=== PATIENT | male | born 1960 | race Caucasian/White ===

== ENCOUNTER 2017-08-01 22:25 | Emergency (ER) | payer MEDICAID ==
[~2017-08-01] VITALS: Ht 177.8 cm; Wt 5.9 kg
[2017-08-01 22:36] VITALS: BP_SYST 113
[2017-08-01] MEDS ORDERED: NACL 0.9% 1,000 ML IV ONE (23:09)
[2017-08-01] MEDS ORDERED: MORPHINE 4 MG/ML INJ. SYRINGE IVP ONE (23:15)
[2017-08-01] MEDS ORDERED: ONDANSETRON HCL 4 MG/2 ML VIAL IVP ONE (23:15)
[2017-08-01] MEDS ORDERED: LORazepam 2 MG/ML VIAL (FOR ER USE) IVP ONE (23:30)
[2017-08-02 00:04] LABS: BASOPHILS # (AUTO) 0.4 K/uL (0.0-0.2); EOSINOPHILS # (AUTO) 0.3 K/uL (0.0-0.4); EOSINOPHILS % (AUTO) 2.6 % (0.0-4.0); HEMATOCRIT 43.2 % (36-54); HEMOGLOBIN 14.5 g/dL (14.0-18.0); LYMPHOCYTES % (AUTO) 16.8 % (20.5-51.5); MEAN CORPUSCULAR HEMOGLOBIN 29 pg (27-31); MEAN CORPUSCULAR HGB CONC 34 % (32-36); MEAN CORPUSCULAR VOLUME 87 fL (79.0-98.0); MONOCYTES # (AUTO) 0.8 K/uL (0.0-1.0); MONOCYTES % (AUTO) 6.9 % (1.7-9.3); NEUTROPHILS # (AUTO) 8.2 K/uL (1.8-7.7); NEUTROPHILS % (AUTO) 70.7 % (40.0-70.0); PLATELET COUNT (AUTO) 361 K/uL (130-430); RED BLOOD CELL COUNT(AUTO) 4.95 MIL/uL (4.2-6.2); RED CELL DISTRIBUTION WIDTH 12.4 % (9.0-15.0); WHITE BLOOD COUNT (AUTO) 11.8 K/uL (4.8-10.8)
[2017-08-02 00:18] LABS: CALCIUM 8.9 mg/dL (8.4-11.0); CREATININE 0.88 mg/dL (0.55-1.30); POTASSIUM 3.7 mmol/L (3.5-5.1)
[2017-08-02 00:22] LABS: ALBUMIN 3.6 g/dL (3.4-4.8); TOTAL BILIRUBIN 0.7 mg/dL (0.0-1.0)
[2017-08-02 00:24] LABS: PROTHROMBIN TIME 10.2 SECS (9.5-12.5)
[2017-08-02] MEDS ORDERED: MORPHINE 4 MG/ML INJ. SYRINGE IVP ONE (00:45)
[2017-08-02] MEDS ORDERED: DIPHENHYDRAMINE INJ 50 MG/ML VIAL IVP ONE (00:45)
[2017-08-02] MEDS ORDERED: MORPHINE SULFATE 10 MG/ML VIAL ONE (00:58)
[2017-08-02 02:00] VITALS: BP_SYST 113
== END 2017-08-02 02:10 | disposition home or self-care (01) ==
LOC: SED 22:25
DX: M79.1 Myalgia (principal); M54.9 Dorsalgia, unspecified; G20 Parkinson's disease; I10 Essential (primary) hypertension; Z76.5 Malingerer [conscious simulation]; Z88.6 Allergy status to analgesic agent
CPT/HCPCS: 36415; 71045; 80053; 82150; 82550; 83690; 84484; 85025; 85610; 85730; 93005; 96374; 96375; 96376; 99285; J1200; J2060; J2270 ×2; J2405; J7030

== ENCOUNTER 2017-08-02 22:54 | Emergency (ER) | payer MEDICAID ==
[~2017-08-02] VITALS: Ht 175.3 cm; Wt 104.3 kg
[2017-08-02 22:58] VITALS: BP_SYST 142
[2017-08-03] MEDS ORDERED: DIPHENHYDRAMINE INJ 50 MG/ML VIAL IM ONE
[2017-08-03] MEDS ORDERED: MORPHINE 4 MG/ML INJ. SYRINGE IM ONE ×2 (00:45)
[2017-08-03 01:24] VITALS: BP_SYST 110
== END 2017-08-03 01:24 | disposition home or self-care (01) ==
LOC: SED 22:54
DX: G89.29 Other chronic pain (principal); G20 Parkinson's disease; I10 Essential (primary) hypertension; Z88.6 Allergy status to analgesic agent
CPT/HCPCS: 96372; 99284; J1200; J2270

== ENCOUNTER 2017-08-03 18:38 | Emergency (ER) | payer MEDICAID ==
[~2017-08-03] VITALS: Ht 175.3 cm; Wt 104.3 kg
[2017-08-03 18:40] VITALS: BP_SYST 130
[2017-08-03] MEDS ORDERED: LORazepam 2 MG/ML VIAL (FOR ER USE) IVP ONE (19:00)
[2017-08-03] MEDS: ACETAMINOPHEN 500 MG TABLET PO ONE ×2 (19:33→19:44)
[2017-08-03] MEDS ORDERED: MORPHINE 4 MG/ML INJ. SYRINGE IVP ONE (19:45)
[2017-08-03 19:54] VITALS: BP_SYST 130
== END 2017-08-03 19:54 | disposition home or self-care (01) ==
LOC: SED 18:38
DX: R25.1 Tremor, unspecified (principal); G20 Parkinson's disease; I10 Essential (primary) hypertension; Z88.6 Allergy status to analgesic agent
CPT/HCPCS: 96374; 96375; 99284; J2060; J2270

== ENCOUNTER 2017-08-04 18:38 | Emergency (ER) | payer MEDICAID ==
[~2017-08-04] VITALS: Ht 175.3 cm; Wt 104.3 kg
[2017-08-04 18:45] VITALS: BP_SYST 108
[2017-08-04] MEDS ORDERED: MORPHINE SULFATE 10 MG/ML VIAL IM ONE (19:00)
[2017-08-04] MEDS ORDERED: LORazepam 1 MG TABLET PO ONE (19:00)
[2017-08-04 21:15] VITALS: BP_SYST 124
== END 2017-08-04 21:15 | disposition home or self-care (01) ==
LOC: SED 18:38
DX: G20 Parkinson's disease (principal); I10 Essential (primary) hypertension; Z88.6 Allergy status to analgesic agent
CPT/HCPCS: 96372; 99283; J2270

== ENCOUNTER 2017-08-06 00:34 | Emergency (ER) | payer MEDICAID ==
[~2017-08-06] VITALS: Ht 182.9 cm; Wt 77.1 kg
[2017-08-06 00:40] VITALS: BP_SYST 121
--- NOTE | 2017-08-06 00:40 | NUR ---
Placed in hallway.
--- NOTE | 2017-08-06 00:43 | NUR ---
Patient AAOx4, brought in via wheelchair. Patient states having pain to right leg and generalized body aches with pain scale 9/10. Patient states pain has an aching sensation. Patient states he is able to walk with assistance. Patient denies any other complaints.
[2017-08-06] MEDS ORDERED: DIPHENHYDRAMINE INJ 50 MG/ML VIAL IM ONE (01:00)
[2017-08-06] MEDS ORDERED: KETOROLAC TROMETHAMINE 30 MG VIAL IM ONE (01:00)
--- NOTE | 2017-08-06 01:03 | NUR ---
ER Dr. Reeder at bedside examining patient.
[2017-08-06 01:30] VITALS: BP_SYST 123
--- NOTE | 2017-08-06 01:30 | NUR ---
Patient given written and verbal discharge instructions and verbalizes understanding. ER MD discussed with patient the results and treatment provided. Patient in stable condition. ID arm band removed. Patient educated on pain management and to follow up with PMD. Pain Scale 0/10. Opportunity for questions provided and answered.
== END 2017-08-06 01:30 | disposition home or self-care (01) ==
LOC: SED 00:34
DX: M79.1 Myalgia (principal); G20 Parkinson's disease; I10 Essential (primary) hypertension; Z88.6 Allergy status to analgesic agent
CPT/HCPCS: 96372; 99284; J1200; J1885

== ENCOUNTER 2017-10-23 16:57 | Emergency (ER) | payer MEDICAID ==
[~2017-10-23] VITALS: Ht 177.8 cm; Wt 95.3 kg
[2017-10-23 17:05] VITALS: BP_SYST 166
--- NOTE | 2017-10-23 17:05 | NUR ---
Pt c/o lower back pain progressively worsening s/p fall 1 month ago. Pt states pain exacerbates his Parkinson's Disease. Resting tremmors noted to extremities.
--- NOTE | 2017-10-23 17:05 | NUR ---
Patient wheeled by staff to ER bed 2 to gown for evaluation. Side rails up.
--- NOTE | 2017-10-23 17:20 | NUR ---
Dr. Whitmore at bedside.
--- NOTE | 2017-10-23 17:45 | NUR ---
Pt c/o severe back pain. Dr. Whitmore notified.
[2017-10-23] MEDS ORDERED: MORPHINE 4 MG/ML INJ. SYRINGE IM ONE (18:15)
--- NOTE | 2017-10-23 18:30 | NUR ---
No needs verbalized at this time. Resting tremmors continue to extremities, VSS.
--- NOTE | 2017-10-23 19:00 | NUR ---
Pt requests more pain medication for lower back pain. Pt states that he does not want to be admitted and requests a pain pill and to be discharged with an Rx for pain medications. Dr. Whitmore notified.
[2017-10-23] MEDS ORDERED: HYDROcodone/ACETAMIN 10-325 MG TAB PO ONE (19:15)
--- NOTE | 2017-10-23 20:30 | NUR ---
Patient given written and verbal discharge instructions and verbalizes understanding. ER MD Whitmore discussed with patient the results and treatment provided. Patient in stable condition. ID arm band removed. Rx of [place] given. Patient educated on pain management and to follow up with PMD. Pain Scale 0. Opportunity for questions provided and answered. Medication side effect fact sheet provided.
[2017-10-23 20:33] VITALS: BP_SYST 151
== END 2017-10-23 20:30 | disposition home or self-care (01) ==
LOC: SED 16:57
DX: M54.5 Low back pain (principal); G89.29 Other chronic pain; G20 Parkinson's disease; I10 Essential (primary) hypertension; Z88.6 Allergy status to analgesic agent
CPT/HCPCS: 96372; 99283; J2270

== ENCOUNTER 2017-10-26 15:49 | Emergency (ER) | payer MEDICAID ==
[~2017-10-26] VITALS: Ht 177.8 cm; Wt 95.3 kg
[2017-10-26 15:56] VITALS: BP_SYST 164
[2017-10-26] MEDS ORDERED: KETOROLAC TROMETHAMINE 60 MG/2 ML VIAL IM ONE (16:45)
[2017-10-26] MEDS ORDERED: LORazepam 2 MG/ML VIAL (FOR ER USE) IM ONE (16:45)
[2017-10-26 17:15] VITALS: BP_SYST 164
== END 2017-10-26 17:15 | disposition home or self-care (01) ==
LOC: SED 15:49
DX: G89.29 Other chronic pain (principal); G20 Parkinson's disease; I10 Essential (primary) hypertension; Z88.6 Allergy status to analgesic agent
CPT/HCPCS: 96372; 99284; J1885; J2060

== ENCOUNTER 2017-11-24 12:16 | Emergency (ER) | payer MEDICAID ==
[~2017-11-24] VITALS: Ht 177.8 cm; Wt 101.6 kg
[2017-11-24 12:36] VITALS: BP_SYST 158
--- NOTE | 2017-11-24 14:45 | NUR ---
Patient verbalizes that he is unable to wait any longer. Patient was wheeled home by . LWBS.
== END 2017-11-24 14:45 | disposition left against medical advice (07) ==
LOC: SED 12:16
DX: M54.5 Low back pain (principal); Z53.21 Procedure and treatment not carried out due to patient leaving prior to being seen by health care provider

== ENCOUNTER 2018-01-10 14:08 | Emergency (ER) | payer MEDICAID ==
[~2018-01-10] VITALS: Ht 177.8 cm; Wt 104.3 kg
[2018-01-10 14:15] VITALS: BP_SYST 132
[2018-01-10 14:44] LABS: BASOPHILS # (AUTO) 0.2 K/uL (0.0-0.2); BASOPHILS % (AUTO) 1.9 % (0.0-2.0); EOSINOPHILS # (AUTO) 0.1 K/uL (0.0-0.4); EOSINOPHILS % (AUTO) 1.4 % (0.0-4.0); HEMATOCRIT 45.3 % (36-54); HEMOGLOBIN 14.8 g/dL (14.0-18.0); LYMPHOCYTES # (AUTO) 1.4 K/uL (1.0-5.5); LYMPHOCYTES % (AUTO) 16.3 % (20.5-51.5); MEAN CORPUSCULAR HEMOGLOBIN 30 pg (27-31); MEAN CORPUSCULAR HGB CONC 33 % (32-36); MEAN CORPUSCULAR VOLUME 91 fL (79.0-98.0); MONOCYTES # (AUTO) 0.7 K/uL (0.0-1.0); MONOCYTES % (AUTO) 7.9 % (1.7-9.3); NEUTROPHILS # (AUTO) 6.5 K/uL (1.8-7.7); NEUTROPHILS % (AUTO) 72.5 % (40.0-70.0); PLATELET COUNT (AUTO) 308 K/uL (130-430); RED BLOOD CELL COUNT(AUTO) 4.97 MIL/uL (4.2-6.2); RED CELL DISTRIBUTION WIDTH 13.4 % (9.0-15.0); WHITE BLOOD COUNT (AUTO) 8.9 K/uL (4.8-10.8)
[2018-01-10 14:58] LABS: CALCIUM 9.6 mg/dL (8.4-11.0); CREATININE 0.99 mg/dL (0.55-1.30); POTASSIUM 4.1 mmol/L (3.5-5.1)
[2018-01-10 15:04] LABS: ALBUMIN 3.7 g/dL (3.4-4.8); TOTAL BILIRUBIN 0.5 mg/dL (0.0-1.0)
[2018-01-10] MEDS ORDERED: MORPHINE 4 MG/ML INJ. SYRINGE IVP ONE ×2 (15:45→16:45)
[2018-01-10] MEDS ORDERED: LORazepam 2 MG/ML VIAL (FOR ER USE) IVP ONE (16:45)
[2018-01-10 16:50] VITALS: BP_SYST 146
== END 2018-01-10 16:50 | disposition home or self-care (01) ==
LOC: SED 14:08
DX: G89.29 Other chronic pain (principal); M54.9 Dorsalgia, unspecified; I10 Essential (primary) hypertension; G20 Parkinson's disease; Z88.6 Allergy status to analgesic agent; W18.39XA Other fall on same level, initial encounter; Y93.89 Activity, other specified; Y92.89 Other specified places as the place of occurrence of the external cause; Y99.8 Other external cause status
CPT/HCPCS: 36415; 72100; 80053; 83690; 85025; 96374; 99284; J2270

== ENCOUNTER 2018-01-24 15:25 | Emergency (ER) | payer MEDICAID ==
[~2018-01-24] VITALS: Ht 177.8 cm; Wt 104.3 kg
[2018-01-24] MEDS ORDERED: NACL 0.9% 1,000 ML IV ONE (15:36)
[2018-01-24 15:41] VITALS: BP_SYST 142
[2018-01-24] MEDS ORDERED: ONDANSETRON HCL 4 MG/2 ML VIAL IVP ONE (15:45)
[2018-01-24] MEDS ORDERED: MORPHINE 4 MG/ML INJ. SYRINGE IVP ONE ×2 (15:45→17:30)
[2018-01-24 16:10] LABS: BASOPHILS # (AUTO) 0.2 K/uL (0.0-0.2); EOSINOPHILS # (AUTO) 0.1 K/uL (0.0-0.4); EOSINOPHILS % (AUTO) 1.2 % (0.0-4.0); HEMATOCRIT 44.3 % (36-54); HEMOGLOBIN 14.4 g/dL (14.0-18.0); LYMPHOCYTES # (AUTO) 1.9 K/uL (1.0-5.5); LYMPHOCYTES % (AUTO) 19.1 % (20.5-51.5); MEAN CORPUSCULAR HEMOGLOBIN 30 pg (27-31); MEAN CORPUSCULAR HGB CONC 33 % (32-36); MEAN CORPUSCULAR VOLUME 92 fL (79.0-98.0); MONOCYTES # (AUTO) 0.6 K/uL (0.0-1.0); MONOCYTES % (AUTO) 6.2 % (1.7-9.3); NEUTROPHILS # (AUTO) 7.2 K/uL (1.8-7.7); NEUTROPHILS % (AUTO) 71.5 % (40.0-70.0); PLATELET COUNT (AUTO) 312 K/uL (130-430); RED BLOOD CELL COUNT(AUTO) 4.81 MIL/uL (4.2-6.2); RED CELL DISTRIBUTION WIDTH 13.1 % (9.0-15.0)
[2018-01-24 16:14] LABS: CALCIUM 8.8 mg/dL (8.4-11.0); CREATININE 0.99 mg/dL (0.55-1.30); POTASSIUM 3.8 mmol/L (3.5-5.1)
[2018-01-24 16:17] LABS: PROTHROMBIN TIME 10.1 SECS (9.5-12.5)
[2018-01-24 16:26] LABS: ALBUMIN 3.6 g/dL (3.4-4.8); TOTAL BILIRUBIN 0.7 mg/dL (0.0-1.0)
[2018-01-24] MEDS ORDERED: [UNRECOGNIZED DRUG - CODE] PO (17:04)
[2018-01-24] MEDS ORDERED: DIPHENHYDRAMINE INJ 50 MG/ML VIAL IVP ONE (17:15)
[2018-01-24 17:48] LABS: BILIRUBIN,URINE NEGATIVE (NEGATIVE); BLOOD, URINE TRACE (NEGATIVE); CLARITY/URINE CLEAR (CLEAR); COLOR,URINE YELLOW (YELLOW); GLUCOSE,URINE NEGATIVE (NEGATIVE); KETONES,URINE NEGATIVE (NEGATIVE); LEUKOCYTE ESTERASE ,URINE NEGATIVE (NEGATIVE); NITRITE, URINE NEGATIVE (NEGATIVE); PH,URINE 5.5 (5.0-8.0); PROTEIN URINE NEGATIVE (NEGATIVE); UROBILINOGEN,URINE 0.2 (0.2-1.0)
[2018-01-24 17:55] LABS: BACTERIA,URINE RARE /HPF (None Seen); RBC,URINE 0-3 /HPF (0-3); WBC,URINE 0-3 /HPF (0-3)
[2018-01-24 19:20] VITALS: BP_SYST 154
== END 2018-01-24 19:20 | disposition home or self-care (01) ==
LOC: SED 15:25
DX: G89.29 Other chronic pain (principal); M54.5 Low back pain; F41.9 Anxiety disorder, unspecified; G20 Parkinson's disease; I10 Essential (primary) hypertension; Z88.6 Allergy status to analgesic agent
CPT/HCPCS: 36415; 71045; 80053; 81000; 82150; 82550; 83690; 84484; 85025; 85610; 85730; 93005; 96374; 96375; 96376; 99284; J1200; J2270; J2405; J7030

== ENCOUNTER 2018-02-25 17:20 | Emergency (ER) | payer MEDICAID ==
[~2018-02-25] VITALS: Ht 177.8 cm; Wt 104.3 kg
[2018-02-25 17:20] VITALS: BP_SYST 148
[~2018-02-25 17:20] MED LIST: [UNRECOGNIZED DRUG - CODE] PO
[2018-02-25] MEDS ORDERED: LORazepam 2 MG/ML VIAL (FOR ER USE) IVP ONE (17:45)
[2018-02-25] MEDS ORDERED: DIPHENHYDRAMINE INJ 50 MG/ML VIAL IVP ONE (17:45)
[2018-02-25 18:22] LABS: BASOPHILS # (AUTO) 0.1 K/uL (0.0-0.2); BASOPHILS % (AUTO) 0.5 % (0.0-2.0); EOSINOPHILS # (AUTO) 0.1 K/uL (0.0-0.4); EOSINOPHILS % (AUTO) 1.4 % (0.0-4.0); HEMATOCRIT 46.7 % (36-54); HEMOGLOBIN 15.6 g/dL (14.0-18.0); LYMPHOCYTES # (AUTO) 2.1 K/uL (1.0-5.5); MEAN CORPUSCULAR HEMOGLOBIN 30 pg (27-31); MEAN CORPUSCULAR HGB CONC 34 % (32-36); MEAN CORPUSCULAR VOLUME 91 fL (79.0-98.0); MONOCYTES # (AUTO) 0.6 K/uL (0.0-1.0); NEUTROPHILS # (AUTO) 7.5 K/uL (1.8-7.7); NEUTROPHILS % (AUTO) 72.1 % (40.0-70.0); PLATELET COUNT (AUTO) 338 K/uL (130-430); RED BLOOD CELL COUNT(AUTO) 5.15 MIL/uL (4.2-6.2); RED CELL DISTRIBUTION WIDTH 12.6 % (9.0-15.0); WHITE BLOOD COUNT (AUTO) 10.4 K/uL (4.8-10.8)
[2018-02-25 18:42] LABS: CALCIUM 9.3 mg/dL (8.4-11.0); CREATININE 0.9 mg/dL (0.55-1.30); POTASSIUM 4.1 mmol/L (3.5-5.1)
[2018-02-25 18:47] LABS: ALBUMIN 3.9 g/dL (3.4-4.8); TOTAL BILIRUBIN 0.6 mg/dL (0.0-1.0)
[2018-02-25 18:59] LABS: BARBITURATE, URINE NEGATIVE (NEG <=200); BENZODIAZEPINE, URINE NEGATIVE (NEG <=150); CANNABINOID, URINE NEGATIVE (NEG <=50); COCAINE, URINE NEGATIVE (NEG <=150); METHAMPHETAMINES SCREEN,URINE NEGATIVE (NEG <=500); OPIATE, URINE POSITIVE (NEG <=100); PHENCYCLIDINE SCREEN,URINE NEGATIVE (NEG <=25); UR TRICYCLIC ANTIDEPRESSANTS NEGATIVE (NEG <=300); URINE AMPHETAMINE NEGATIVE (NEG <=500); URINE METHADONE NEGATIVE (NEG <=200); URINE OXYCODONE SCREEN NEGATIVE (NEG <=100); URINE PROPOXYPHENE SCREEN NEGATIVE (NEG <=300)
[2018-02-25 19:30] VITALS: BP_SYST 140
[2018-02-25] MEDS ORDERED: NORMAL SALINE 5 ML DISP.SYRIN IVF SCH (22:00)
== END 2018-02-25 19:42 | disposition home or self-care (01) ==
LOC: SED 17:20
DX: G20 Parkinson's disease (principal); G89.29 Other chronic pain; M54.5 Low back pain; I10 Essential (primary) hypertension; Z88.6 Allergy status to analgesic agent
CPT/HCPCS: 36415; 80053; 80307; 85025; 96374; 96375; 99283; J1200; J2060

== ENCOUNTER 2018-04-26 14:00 | Emergency (ER) | payer MEDICAID ==
[~2018-04-26] VITALS: Ht 177.8 cm; Wt 106.6 kg
[2018-04-26 14:26] VITALS: BP_SYST 166
[2018-04-26] MEDS ORDERED: MORPHINE SULFATE 10 MG/ML VIAL IM ONE (15:30)
[2018-04-26] MEDS ORDERED: ONDANSETRON 4 MG ODT TAB PO ONE (15:30)
[2018-04-26] MEDS ORDERED: HYDROcodone/ACETAMIN 10-325 MG TAB PO ONE (16:15)
[2018-04-26 18:25] VITALS: BP_SYST 148
== END 2018-04-26 18:20 | disposition home or self-care (01) ==
LOC: SED 14:00
DX: S39.012A Strain of muscle, fascia and tendon of lower back, initial encounter (principal); G20 Parkinson's disease; I10 Essential (primary) hypertension; F41.9 Anxiety disorder, unspecified; Z88.6 Allergy status to analgesic agent; W19.XXXA Unspecified fall, initial encounter; Y93.89 Activity, other specified; Y92.89 Other specified places as the place of occurrence of the external cause; Y99.8 Other external cause status
CPT/HCPCS: 72192; 96372; 99284; J2270; Q0162

== ENCOUNTER 2018-05-24 16:06 | Emergency (ER) | payer MEDICAID ==
[~2018-05-24] VITALS: Ht 177.8 cm; Wt 106.6 kg
[2018-05-24 16:37] VITALS: BP_SYST 132
[2018-05-24] MEDS ORDERED: fentaNYL CITRATE/PF 100 MCG/2 ML AMP IM ONE (17:15)
[2018-05-24 18:20] VITALS: BP_SYST 140
== END 2018-05-24 18:19 | disposition home or self-care (01) ==
LOC: SED 16:06
DX: S16.1XXA Strain of muscle, fascia and tendon at neck level, initial encounter (principal); S30.0XXA Contusion of lower back and pelvis, initial encounter; I10 Essential (primary) hypertension; F41.9 Anxiety disorder, unspecified; Z88.6 Allergy status to analgesic agent; W10.9XXA Fall (on) (from) unspecified stairs and steps, initial encounter; Y93.89 Activity, other specified; Y92.89 Other specified places as the place of occurrence of the external cause; Y99.8 Other external cause status
CPT/HCPCS: 72040; 72100; 96372; 99283; J3010

== ENCOUNTER 2018-05-25 15:56 | Emergency (ER) | payer MEDICAID ==
[~2018-05-25] VITALS: Ht 177.8 cm; Wt 106.6 kg
[2018-05-25 15:59] VITALS: BP_SYST 169
[2018-05-25 16:48] LABS: BASOPHILS % (AUTO) 0.4 % (0.0-2.0); EOSINOPHILS % (AUTO) 0.4 % (0.0-4.0); HEMATOCRIT 47.7 % (36-54); HEMOGLOBIN 15.9 g/dL (14.0-18.0); LYMPHOCYTES # (AUTO) 1.3 K/uL (1.0-5.5); LYMPHOCYTES % (AUTO) 11.9 % (20.5-51.5); MEAN CORPUSCULAR HEMOGLOBIN 30 pg (27-31); MEAN CORPUSCULAR HGB CONC 33 % (32-36); MEAN CORPUSCULAR VOLUME 91 fL (79.0-98.0); MONOCYTES # (AUTO) 0.5 K/uL (0.0-1.0); MONOCYTES % (AUTO) 4.8 % (1.7-9.3); NEUTROPHILS # (AUTO) 9.2 K/uL (1.8-7.7); NEUTROPHILS % (AUTO) 82.5 % (40.0-70.0); PLATELET COUNT (AUTO) 310 K/uL (130-430); RED BLOOD CELL COUNT(AUTO) 5.24 MIL/uL (4.2-6.2); RED CELL DISTRIBUTION WIDTH 13.9 % (9.0-15.0); WHITE BLOOD COUNT (AUTO) 11.1 K/uL (4.8-10.8)
[2018-05-25 17:05] LABS: CALCIUM 9.6 mg/dL (8.4-11.0); CREATININE 0.97 mg/dL (0.55-1.30); POTASSIUM 3.8 mmol/L (3.5-5.1)
[2018-05-25 17:10] LABS: TOTAL BILIRUBIN 1.2 mg/dL (0.0-1.0)
[2018-05-25] MEDS ORDERED: KETOROLAC TROMETHAMINE 60 MG/2 ML VIAL IM ONE (17:15)
[2018-05-25] MEDS ORDERED: HYDROcodone/ACETAMIN 10-325 MG TAB PO ONE (17:15)
[2018-05-25 17:19] LABS: PROTHROMBIN TIME 10.1 SECS (9.5-12.5)
[2018-05-25 19:22] VITALS: BP_SYST 140
== END 2018-05-25 19:19 | disposition home or self-care (01) ==
LOC: SED 15:56
DX: G89.29 Other chronic pain (principal); M54.5 Low back pain; R07.89 Other chest pain; I10 Essential (primary) hypertension; F41.9 Anxiety disorder, unspecified; G20 Parkinson's disease; Z88.6 Allergy status to analgesic agent
CPT/HCPCS: 36415; 71045; 80053; 83880; 84484; 85025; 85610; 85730; 93005; 96372; 99284; J1885

== ENCOUNTER 2018-06-21 12:05 | Emergency (ER) | payer MEDICAID ==
[~2018-06-21] VITALS: Ht 177.8 cm; Wt 108.9 kg
[2018-06-21 12:12] VITALS: BP_SYST 107
[2018-06-21] MEDS ORDERED: fentaNYL CITRATE/PF 100 MCG/2 ML AMP IM ONE (12:45)
[2018-06-21] MEDS ORDERED: PROCHLORPERAZINE EDISYLATE 10 MG/2 ML VIAL IM ONE (12:45)
[2018-06-21 14:49] VITALS: BP_SYST 124
== END 2018-06-21 14:32 | disposition home or self-care (01) ==
LOC: SED 12:05
DX: M54.5 Low back pain (principal); G89.29 Other chronic pain; I10 Essential (primary) hypertension; G20 Parkinson's disease; F41.9 Anxiety disorder, unspecified; Z88.6 Allergy status to analgesic agent
CPT/HCPCS: 96374; 96375; 99283; J0780; J3010

== ENCOUNTER → 2018-09-09 | Emergency (ER) | payer MEDICAID ==
[~2018-09-09] VITALS: Ht 177.8 cm; Wt 104.8 kg
[~2018-09-09] MED LIST changes: +KETOROLAC TROMETHAMINE 60 MG/2 ML VIAL IM ONE; +LORazepam 2 MG/ML VIAL (FOR ER USE) IM ONE
[2018-09-09 14:10] VITALS: BP_SYST 155
[2018-09-09 16:45] VITALS: BP_SYST 155
== END | disposition still patient (30) ==
LOC: SED 14:09
DX: Z76.0 Encounter for issue of repeat prescription (principal); I10 Essential (primary) hypertension; F41.9 Anxiety disorder, unspecified; G20 Parkinson's disease; Z88.6 Allergy status to analgesic agent
CPT/HCPCS: 96372; 99283; J1885; J2060

== ENCOUNTER 2018-12-01 12:41 | Emergency (ER) | payer MEDICAID ==
[~2018-12-01] VITALS: Ht 177.8 cm; Wt 110.7 kg
[~2018-12-01 12:41] MED LIST changes: -KETOROLAC TROMETHAMINE 60 MG/2 ML VIAL IM ONE; -LORazepam 2 MG/ML VIAL (FOR ER USE) IM ONE
[2018-12-01 12:47] VITALS: BP_SYST 154
[2018-12-01] MEDS ORDERED: MORPHINE 2 MG/ML INJ. SYRINGE IM ONE (13:00)
[2018-12-01] MEDS ORDERED: LORazepam 2 MG/ML VIAL IM ONE (13:00)
[2018-12-01 15:10] VITALS: BP_SYST 149
== END 2018-12-01 15:10 | disposition home or self-care (01) ==
LOC: SED 12:41
DX: M54.41 Lumbago with sciatica, right side (principal); I10 Essential (primary) hypertension; Z88.6 Allergy status to analgesic agent; W01.0XXA Fall on same level from slipping, tripping and stumbling without subsequent striking against object, initial encounter; Y93.89 Activity, other specified; Y92.89 Other specified places as the place of occurrence of the external cause; Y99.8 Other external cause status
CPT/HCPCS: 72131; 96372; 99284; J2060; J2270

== ENCOUNTER 2019-07-01 07:31 | Emergency (ER) | payer MEDICAID ==
[~2019-07-01] VITALS: Ht 177.8 cm; Wt 113.4 kg
--- NOTE | 2019-07-01 07:32 | NUR ---
Patient to ER bed 5 to gown for evaluation. Side rails up.
--- NOTE | 2019-07-01 07:35 | NUR ---
ER Dr. Eisenberg at bedside examining patient.
--- NOTE | 2019-07-01 07:37 | NUR ---
Pt BIBA c/o increase tremors and sleep depreviation. Pt reports running out of his medications. Pt currently takes ativan 2mg x twice a day. Pt reports pain 8/10 for chronic back pain.
--- NOTE | 2019-07-01 07:40 | NUR ---
PATIENT PLACED ON WARM IN WORKER, SAO2, ABP
[2019-07-01 07:43] VITALS: BP_SYST 161
[2019-07-01] MEDS ORDERED: LISI40TA4 PO (07:43)
[2019-07-01] MEDS ORDERED: LORA2TAB95 PO (07:43)
[2019-07-01] MEDS ORDERED: LORazepam 1 MG TABLET PO ONE (08:15)
--- NOTE | 2019-07-01 08:30 | NUR ---
Pt reports a decrease in tremors 18 minutes after ativan 2mg PO given. Will continue to monitor.
[2019-07-01 08:35] LABS: BASOPHILS # (AUTO) 0.1 K/uL (0.0-0.2); BASOPHILS % (AUTO) 0.4 % (0.0-2.0); EOSINOPHILS % (AUTO) 0.2 % (0.0-4.0); HEMATOCRIT 42.7 % (36-54); HEMOGLOBIN 14.3 g/dL (14.0-18.0); LYMPHOCYTES # (AUTO) 1.7 K/uL (1.0-5.5); LYMPHOCYTES % (AUTO) 12.1 % (20.5-51.5); MEAN CORPUSCULAR HEMOGLOBIN 30 pg (27-31); MEAN CORPUSCULAR HGB CONC 34 % (32-36); MEAN CORPUSCULAR VOLUME 88 fL (79.0-98.0); MONOCYTES # (AUTO) 0.9 K/uL (0.0-1.0); MONOCYTES % (AUTO) 6.2 % (1.7-9.3); NEUTROPHILS # (AUTO) 11.4 K/uL (1.8-7.7); NEUTROPHILS % (AUTO) 81.1 % (40.0-70.0); PLATELET COUNT (AUTO) 361 K/uL (130-430); RED BLOOD CELL COUNT(AUTO) 4.83 MIL/uL (4.2-6.2); RED CELL DISTRIBUTION WIDTH 13.6 % (9.0-15.0)
[2019-07-01 08:42] LABS: CREATININE 0.99 mg/dL (0.55-1.30); POTASSIUM 4.1 mmol/L (3.5-5.1)
[2019-07-01 08:48] LABS: ALBUMIN 3.8 g/dL (3.4-4.8); TOTAL BILIRUBIN 0.7 mg/dL (0.0-1.0)
--- NOTE | 2019-07-01 09:06 | NUR ---
REASSESSMENT; PATIENT STATES HIS SYMPTOMS ARE MARKEDLY IMPROVED; DISPOSITION PENDING; PATIENT IS CURRENTLY PAIN FREE
[2019-07-01 09:47] VITALS: BP_SYST 137
--- NOTE | 2019-07-01 09:47 | NUR ---
Patient given written and verbal discharge instructions and verbalizes understanding. ER MD discussed with patient the results and treatment provided. Patient in stable condition. ID arm band removed. Rx of ATIVAN given. Patient educated on pain management and to follow up with PMD. Pain Scale 0/10. Opportunity for questions provided and answered. Medication side effect fact sheet provided.
== END 2019-07-01 09:47 | disposition home or self-care (01) ==
LOC: SED 07:31
DX: G25.2 Other specified forms of tremor (principal); F41.9 Anxiety disorder, unspecified; G20 Parkinson's disease; I10 Essential (primary) hypertension; Z79.899 Other long term (current) drug therapy; Z88.6 Allergy status to analgesic agent
CPT/HCPCS: 36415; 80053; 85025; 99283

== ENCOUNTER 2019-09-09 05:46 | Emergency (ER) | payer MEDICAID ==
[~2019-09-09] VITALS: Ht 177.8 cm; Wt 113.4 kg
[2019-09-09 05:46] VITALS: BP_SYST 162
[~2019-09-09 05:46] MED LIST changes: +LISI40TA4 PO; +LORA2TAB95 PO
[2019-09-09] MEDS ORDERED: NACL 0.9% 1,000 ML IV ONE (06:19)
[2019-09-09] MEDS ORDERED: LORazepam 2 MG/ML VIAL IVP ONE ×2 (06:30→08:15)
[2019-09-09] MEDS ORDERED: MORPHINE 2 MG/ML INJ. SYRINGE IVP ONE (06:30)
[2019-09-09 06:55] LABS: BASOPHILS # (AUTO) 0.1 K/uL (0.0-0.2); BASOPHILS % (AUTO) 0.5 % (0.0-2.0); EOSINOPHILS % (AUTO) 0.2 % (0.0-4.0); HEMATOCRIT 43.1 % (36-54); HEMOGLOBIN 14.3 g/dL (14.0-18.0); LYMPHOCYTES # (AUTO) 1.5 K/uL (1.0-5.5); LYMPHOCYTES % (AUTO) 10.1 % (20.5-51.5); MEAN CORPUSCULAR HEMOGLOBIN 29 pg (27-31); MEAN CORPUSCULAR HGB CONC 33 % (32-36); MEAN CORPUSCULAR VOLUME 88 fL (79.0-98.0); MONOCYTES # (AUTO) 1.1 K/uL (0.0-1.0); MONOCYTES % (AUTO) 7.7 % (1.7-9.3); NEUTROPHILS # (AUTO) 11.7 K/uL (1.8-7.7); NEUTROPHILS % (AUTO) 81.5 % (40.0-70.0); PLATELET COUNT (AUTO) 370 K/uL (130-430); RED BLOOD CELL COUNT(AUTO) 4.92 MIL/uL (4.2-6.2); RED CELL DISTRIBUTION WIDTH 13.2 % (9.0-15.0); WHITE BLOOD COUNT (AUTO) 14.4 K/uL (4.8-10.8)
[2019-09-09 06:56] LABS: CALCIUM 9.5 mg/dL (8.4-11.0); CREATININE 1.01 mg/dL (0.55-1.30); POTASSIUM 4.2 mmol/L (3.5-5.1)
[2019-09-09 07:01] LABS: ALBUMIN 3.9 g/dL (3.4-4.8)
[2019-09-09 07:03] LABS: PROTHROMBIN TIME 10.5 SECS (9.5-12.5)
[2019-09-09] MEDS ORDERED: ONDANSETRON HCL 4 MG/2 ML VIAL IVP ONE (07:30)
[2019-09-09] MEDS ORDERED: MORPHINE 4 MG/ML INJ. SYRINGE IVP ONE ×2 (07:30→08:15)
[2019-09-09 08:38] VITALS: BP_SYST 167
== END 2019-09-09 08:52 | disposition home or self-care (01) ==
LOC: SED 05:46
DX: G25.2 Other specified forms of tremor (principal); G20 Parkinson's disease; F41.9 Anxiety disorder, unspecified; I10 Essential (primary) hypertension; Z79.899 Other long term (current) drug therapy; Z88.6 Allergy status to analgesic agent
CPT/HCPCS: 36415; 71045; 80053; 83605; 85025; 85610; 85730; 87040; 93005; 96374; 96375; 96376; 99285; J2060; J2270 ×2; J2405; J7030

== ENCOUNTER 2020-08-10 10:24 | Emergency (ER) | payer MEDICAID ==
[~2020-08-10] VITALS: Ht 177.8 cm; Wt 117.9 kg
[~2020-08-10 10:24] MED LIST changes: +LISI40TA13 PO; -LISI40TA4 PO
--- NOTE | 2020-08-10 10:31 | NUR ---
ER DR. JIMENES AT THE BEDSIDE EXAMINING PT
[2020-08-10 10:32] VITALS: BP_SYST 149
--- NOTE | 2020-08-10 10:32 | NUR ---
Patient to ER bed 6 to gown for evaluation. Side rails up
--- NOTE | 2020-08-10 10:33 | NUR ---
PT CAME TO ER STATING THAT HE NEEDS RX REFILL FOR ATIVAN, CARBIDOPA AND TRAMADOL. PT REPORTS HX OF PARKINSON'S, HTN AND CHRONIC BACK PAIN. PT IS AAOX4, V/S STABLE
[2020-08-10 10:47] VITALS: BP_SYST 149
--- NOTE | 2020-08-10 10:48 | NUR ---
Patient given written and verbal discharge instructions and verbalizes understanding. ER MD discussed with patient the results and treatment provided. Patient in stable condition. ID arm band removed. Rx of ATIVAN, TRAMADOL AND CARBIDOPA given. Patient educated on pain management and to follow up with PMD. Pain Scale 7/10 CHRONIC BACK PAIN. Opportunity for questions provided and answered. Medication side effect fact sheet provided.
== END 2020-08-10 10:48 | disposition home or self-care (01) ==
LOC: SED 10:24
DX: F41.9 Anxiety disorder, unspecified (principal); I10 Essential (primary) hypertension; Z88.6 Allergy status to analgesic agent; Z79.899 Other long term (current) drug therapy; Z76.0 Encounter for issue of repeat prescription
CPT/HCPCS: 99281

== ENCOUNTER 2021-01-02 03:08 | Emergency (ER) | payer MEDICAID ==
[~2021-01-02] VITALS: Ht 177.8 cm; Wt 106.6 kg
[2021-01-02 03:28] VITALS: BP_SYST 131
--- NOTE | 2021-01-02 03:45 | NUR ---
Patient wheeled to bed 4 for evaluation
--- NOTE | 2021-01-02 04:08 | NUR ---
ER at bedside examining patient.
--- NOTE | 2021-01-02 04:38 | NUR ---
Called [phone] for a ride (Ivette-patient's sister)
[2021-01-02] MEDS: CARBIDOPA/LEVODOPA 25/250 MG TABLET PO ONE (04:40)
[2021-01-02 04:51] VITALS: BP_SYST 131
--- NOTE | 2021-01-02 04:51 | NUR ---
Patient given written and verbal discharge instructions and verbalizes understanding. ER MD discussed with patient the results and treatment provided. Patient in stable condition. ID arm band removed. Rx of Ativan, Tramadol and Carbidopa given. Patient educated on pain management and to follow up with PMD. Pain Scale 1/10. Opportunity for questions provided and answered. Medication side effect fact sheet provided.
== END 2021-01-02 04:51 | disposition home or self-care (01) ==
LOC: SED 03:08
DX: G20 Parkinson's disease (principal); G89.29 Other chronic pain; M54.9 Dorsalgia, unspecified; F41.9 Anxiety disorder, unspecified; Z76.0 Encounter for issue of repeat prescription; I10 Essential (primary) hypertension; Z79.899 Other long term (current) drug therapy
CPT/HCPCS: 99281; 99283

== ENCOUNTER 2021-04-10 09:09 | Emergency (ER) | payer MEDICAID ==
[~2021-04-10] VITALS: Ht 177.8 cm; Wt 113.4 kg
[2021-04-10 09:10] VITALS: BP_SYST 107
[2021-04-10] MEDS ORDERED: LORazepam 1 MG TABLET PO ONE (09:30)
[2021-04-10 09:37] VITALS: BP_SYST 110
== END 2021-04-10 09:37 | disposition home or self-care (01) ==
LOC: SED 09:09
DX: G20 Parkinson's disease (principal); I10 Essential (primary) hypertension; Z76.0 Encounter for issue of repeat prescription; Z88.6 Allergy status to analgesic agent; Z79.899 Other long term (current) drug therapy
CPT/HCPCS: 99283

== ENCOUNTER 2021-06-15 12:03 | Emergency (ER) | payer MEDICAID ==
[~2021-06-15] VITALS: Ht 177.8 cm; Wt 113.4 kg
[2021-06-15 12:11] VITALS: BP_SYST 148
--- NOTE | 2021-06-15 12:14 | NUR ---
Pt to waiting room waiting for bed to become available. Dr. Perez notified.
--- NOTE | 2021-06-15 12:15 | NUR ---
Pt is A&Ox4. Skin intact. Coming from home ambulatory with assistive device (wheelchair). Pt c/o needing medication refill. No pain. No chest pain and no sob. VSS.
--- NOTE | 2021-06-15 13:00 | NUR ---
Notified Dr. Perez to see pt in waiting room because he has not seen him yet. Dr. Perez stated he will see pt when he can. Notified pt. Pt is A&Ox4. Has no c/o.
[2021-06-15] MEDS ORDERED: CARB1TAB15 PO (13:39)
[2021-06-15] MEDS ORDERED: LISI40TA13 PO (13:39)
--- NOTE | 2021-06-15 14:01 | NUR ---
ER at bedside examining patient.
--- NOTE | 2021-06-15 14:03 | NUR ---
Pt moved to [facility] bed 1. A&Ox4. No c/o.
[2021-06-15] MEDS ORDERED: traMADol HCL HCL 50 MG TABLET (ULTRAM) PO ONE (14:15)
[2021-06-15] MEDS ORDERED: LORazepam 1 MG TABLET PO ONE (14:15)
--- NOTE | 2021-06-15 14:42 | NUR ---
Patient given written and verbal discharge instructions and verbalizes understanding. ER MD discussed with patient the results and treatment provided. Patient in stable condition. ID arm band removed. Rx of Lisinopril and Carvidopa levidopa given. Patient educated on pain management and to follow up with PMD. Pain Scale . Opportunity for questions provided and answered. Medication side effect fact sheet provided.
--- NOTE | 2021-06-15 14:42 | NUR ---
Pt advised not to drive and to be picked up due to medication he was received by Dr. Whitmore. Sister Polly notified and stated she will be on her way to pick pt up.
[2021-06-15 14:43] VITALS: BP_SYST 148
== END 2021-06-15 14:42 | disposition home or self-care (01) ==
LOC: SED 12:03
DX: G20 Parkinson's disease (principal); I10 Essential (primary) hypertension; Z88.6 Allergy status to analgesic agent
CPT/HCPCS: 99283

== ENCOUNTER 2021-07-24 11:18 | Emergency (ER) | payer MEDICAID ==
[~2021-07-24] VITALS: Ht 177.8 cm; Wt 115.7 kg
[~2021-07-24 11:18] MED LIST changes: +CARB1TAB15 PO
[2021-07-24 11:23] VITALS: BP_SYST 158
--- NOTE | 2021-07-24 11:23 | NUR ---
Patient to ER bed 8 to gown for evaluation. Side rails up. Report given to Nikolay.
--- NOTE | 2021-07-24 11:44 | NUR ---
ER at bedside examining patient.
--- NOTE | 2021-07-24 11:55 | NUR ---
PT TAKEN TO RADIOLOGY VIA WHEELCHAIR
[2021-07-24] MEDS ORDERED: HYDROcodone/ACETAMIN 10-325 MG TAB PO ONE (12:00)
[2021-07-24] MEDS ORDERED: KETOROLAC TROMETHAMINE 60 MG/2 ML VIAL IM ONE (12:00)
--- NOTE | 2021-07-24 12:04 | NUR ---
RETURNED FROM RADIOLOGY VIA WHEELCHAIR, PLACED BACK TO ROOM #8
--- NOTE | 2021-07-24 12:20 | NUR ---
ATTEMPTED TO MEDICATE PT WITH TORADOL AND NOR[place] ORDERED. PT STATES HE CAN NOT TAKE TORADOL AND DOES NOT WANT NORCO, PT STATES HE ONLY WANTS TRAMADOL.
[2021-07-24] MEDS ORDERED: traMADol HCL HCL 50 MG TABLET (ULTRAM) PO ONE (12:30)
[2021-07-24] MEDS ORDERED: TRAM50TA2 PO (13:01)
[2021-07-24] MEDS ORDERED: CARB15DR93 EACH EAR (13:13)
[2021-07-24 13:18] VITALS: BP_SYST 158
--- NOTE | 2021-07-24 13:19 | NUR ---
Patient given written and verbal discharge instructions and verbalizes understanding. ER MD discussed with patient the results and treatment provided. Patient in stable condition. ID arm band removed. Rx of TRAMADOL given. Patient educated on pain management and to follow up with PMD. Pain Scale 0/10. Opportunity for questions provided and answered. Medication side effect fact sheet provided.
== END 2021-07-24 13:19 | disposition home or self-care (01) ==
LOC: SED 11:18
DX: S39.012A Strain of muscle, fascia and tendon of lower back, initial encounter (principal); I10 Essential (primary) hypertension; Z88.6 Allergy status to analgesic agent; W18.2XXA Fall in (into) shower or empty bathtub, initial encounter; Y93.89 Activity, other specified; Y92.89 Other specified places as the place of occurrence of the external cause; Y99.8 Other external cause status
CPT/HCPCS: 72100-TC; 99283; J1885

== ENCOUNTER 2021-08-29 12:26 | Emergency (ER) | payer MEDICAID ==
[~2021-08-29] VITALS: Ht 177.8 cm; Wt 117.5 kg
[~2021-08-29 12:26] MED LIST changes: +CARB15DR93 EACH EAR; +TRAM50TA2 PO
[2021-08-29 13:06] VITALS: BP_SYST 153
--- NOTE | 2021-08-29 13:10 | NUR ---
ASSISTED PT OUT OF CAR AND INTO WHEELCHAIR, BROUGHT IN TO ADMITTING AREA AND WILL BE TRIAGED
[2021-08-29] MEDS ORDERED: LORazepam 2 MG/ML VIAL IM ONE (14:00)
--- NOTE | 2021-08-29 14:21 | NUR ---
Pt alert and oriented x 3. Sitting in wheelchair. Instructed to stay seated at this time due to medication given. This RN to endorse discharge VS due to Ativan. Pt verbalized understanding of instruction given.
--- NOTE | 2021-08-29 14:37 | NUR ---
CALL PLACED TO SHARYN AT GIVEN NUMBER AND SHE WILL [employer]PER[employer] PT IN A FEW MINUTES.
--- NOTE | 2021-08-29 14:39 | NUR ---
Patient given written and verbal discharge instructions and verbalizes understanding. ER MD discussed with patient the results and treatment provided. Patient in stable condition. ID arm band removed. Rx of N[place] given. Patient educated on pain management and to follow up with PMD. Pain Scale 0/10. Opportunity for questions provided and answered. Medication side effect fact sheet provided.
[2021-08-29 15:00] VITALS: BP_SYST 151
== END 2021-08-29 14:39 | disposition home or self-care (01) ==
LOC: SED 12:26
DX: R06.4 Hyperventilation (principal); F41.9 Anxiety disorder, unspecified; G20 Parkinson's disease; I10 Essential (primary) hypertension; Z88.6 Allergy status to analgesic agent; Z79.899 Other long term (current) drug therapy
CPT/HCPCS: 99283; 93005; 96372; J2060

== ENCOUNTER 2021-11-05 20:50 | Emergency (ER) | payer MEDICAID ==
[~2021-11-05] VITALS: Ht 177.8 cm; Wt 117.9 kg
[2021-11-05 21:07] VITALS: BP_SYST 156
--- NOTE | 2021-11-05 21:11 | NUR ---
PT BIB BLS TRANSPORT C/O BACK PAIN 11/18 AND TREMORS FROM PARKISONS, PT DENIES FALL/TRAUMA. PMH;CHRONIC BACK PAIN, PARKINSONS, HTN PT AAOX4 AT THIS TIME, PENDING MD [place].
--- NOTE | 2021-11-05 22:33 | NUR ---
Pt states he run out of his Ativan, pt requesting Ativan for his tremors, will be notified
--- NOTE | 2021-11-05 23:06 | NUR ---
Report given to Evelina MONTGOMERY
[2021-11-06] MEDS ORDERED: LORazepam 1 MG TABLET PO ONE (00:30)
[2021-11-06] MEDS ORDERED: MORPHINE 4 MG INJ. 4 MG/ML VIAL IVP ONE (00:30)
[2021-11-06 01:47] VITALS: BP_SYST 148
[2021-11-06] MEDS ORDERED: HYDR-3698 PO (02:03)
--- NOTE | 2021-11-06 02:17 | NUR ---
CALLED AND SPOKE WITH DIOGO, PATIENT SISTER INFORMED HER THAT PT IS READY FOR DC. 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
--- NOTE | 2021-11-06 02:36 | NUR ---
Patient given written and verbal discharge instructions and verbalizes understanding. ER MD discussed with patient the results and treatment provided. Patient in stable condition. ID arm band removed. IV catheter removed intact and dressing applied, no active bleeding. Rx of given. Patient educated on pain management and to follow up with PMD. Pain Scale 0/10. Opportunity for questions provided and answered. Medication side effect fact sheet provided.
[2021-11-06] MEDS ORDERED: LIDOCAINE PATCH 5% 1 EA TP SCH (09:00)
== END 2021-11-06 02:37 | disposition home or self-care (01) ==
LOC: SED 20:50
DX: M54.50 Low back pain, unspecified (principal); R25.1 Tremor, unspecified; F41.9 Anxiety disorder, unspecified; I10 Essential (primary) hypertension; Z86.69 Personal history of other diseases of the nervous system and sense organs; Z88.6 Allergy status to analgesic agent; Z79.899 Other long term (current) drug therapy
CPT/HCPCS: 99283; 96374; J2270

== ENCOUNTER 2023-02-16 12:22 | Emergency (ER) | payer MEDICAID, OTHER ==
[~2023-02-16] VITALS: Ht 177.8 cm; Wt 226.8 kg
[~2023-02-16 12:22] MED LIST changes: +HYDR-3698 PO; +[UNRECOGNIZED DRUG - CODE] PO; -[UNRECOGNIZED DRUG - CODE] PO
[2023-02-16 12:31] VITALS: BP_SYST 140; PULSE 95; RESP 19; TEMP 97.7; O2SAT 98
[2023-02-16] MEDS ORDERED: MORPHINE 4 MG INJ. 4 MG/ML VIAL IM ONE (13:00)
[2023-02-16] MEDS ORDERED: CARBIDOPA/LEVODOPA 25/250 MG TABLET PO ONE (13:00)
[2023-02-16] MEDS ORDERED: CARBIDOPA/LEVODOPA 10/100 MG TABLET PO ONE (13:30)
[2023-02-16] MEDS ORDERED: LISI40TA13 PO (14:47)
[2023-02-16] MEDS ORDERED: CARB1TAB33 PO (14:47)
[2023-02-16 15:29] VITALS: BP_SYST 140; PULSE 95; RESP 19; TEMP 97.7; O2SAT 98
== END 2023-02-16 15:28 | disposition home or self-care (01) ==
LOC: SED 12:22
DX: G20.A1 Parkinson's disease without dyskinesia, without mention of fluctuations (principal); G89.29 Other chronic pain; M54.9 Dorsalgia, unspecified; I10 Essential (primary) hypertension; Z76.0 Encounter for issue of repeat prescription; Z88.6 Allergy status to analgesic agent; Z79.899 Other long term (current) drug therapy
CPT/HCPCS: 99283; 96372; J2270

== ENCOUNTER 2023-03-15 12:21 | Emergency (ER) | payer OTHER ==
[~2023-03-15] VITALS: Ht 177.8 cm; Wt 111.1 kg
[~2023-03-15 12:21] MED LIST changes: +CARB1TAB33 PO
[2023-03-15 12:30] VITALS: BP_SYST 152; PULSE 83; RESP 18; TEMP 98.6; O2SAT 96
[2023-03-15] MEDS ORDERED: LORazepam 1 MG TABLET PO ONE (12:30)
[2023-03-15] MEDS ORDERED: MORPHINE 2 MG/ML INJ. SYRINGE IM ONE (13:00)
[2023-03-15] MEDS ORDERED: CARBIDOPA/LEVODOPA 25/250 MG TABLET PO SCH (13:15)
[2023-03-15 14:25] VITALS: BP_SYST 152; PULSE 83; RESP 18; TEMP 98.6; O2SAT 96
== END 2023-03-15 14:20 | disposition home or self-care (01) ==
LOC: SED 12:21
DX: G20.A1 Parkinson's disease without dyskinesia, without mention of fluctuations (principal); I10 Essential (primary) hypertension; Z88.6 Allergy status to analgesic agent; Z79.899 Other long term (current) drug therapy
CPT/HCPCS: 99283; 96372; J2270

== ENCOUNTER 2023-08-22 19:56 | Emergency (ER) | payer OTHER ==
[~2023-08-22] VITALS: Ht 172.7 cm; Wt 108.9 kg
[2023-08-22 20:08] VITALS: BP_SYST 114; PULSE 110; RESP 20; TEMP 98; O2SAT 97
[2023-08-22 20:50] LABS: BASOPHILS # (AUTO) 0.1 K/uL (0.0-0.2); BASOPHILS % (AUTO) 0.5 % (0.0-2.0); EOSINOPHILS % (AUTO) 0.2 % (0.0-4.0); HEMATOCRIT 47.7 % (36-54); HEMOGLOBIN 16.2 g/dL (14.0-18.0); LYMPHOCYTES # (AUTO) 0.9 K/uL (1.0-5.5); LYMPHOCYTES % (AUTO) 7.3 % (20.5-51.5); MEAN CORPUSCULAR HEMOGLOBIN 32 pg (27-31); MEAN CORPUSCULAR HGB CONC 34 % (32-36); MEAN CORPUSCULAR VOLUME 94 fL (79.0-98.0); MONOCYTES # (AUTO) 0.8 K/uL (0.0-1.0); MONOCYTES % (AUTO) 5.9 % (1.7-9.3); NEUTROPHILS # (AUTO) 11.1 K/uL (1.8-7.7); NEUTROPHILS % (AUTO) 86.1 % (40.0-70.0); PLATELET COUNT (AUTO) 374 K/uL (130-430); RED CELL DISTRIBUTION WIDTH 14.5 % (9.0-15.0); WHITE BLOOD COUNT (AUTO) 12.8 K/uL (4.8-10.8)
[2023-08-22 21:22] LABS: ALANINE AMINOTRANSFERASE 21 U/L (12-78); ALBUMIN 3.7 g/dL (3.4-4.8); ANION GAP 7 (5-15); ASPARTATE AMINOTRANSFERASE 18 U/L (10-37); CALCIUM 9.1 mg/dL (8.4-11.0); CARBON DIOXIDE 28 mmol/L (23-29); CHLORIDE 108 mmol/L (98-107); CREATININE 0.96 mg/dL (0.55-1.30); GFR AFRICAN AMERICAN 102 mL/min (>90); GLUCOSE 151 mg/dL (74-106); INR 1.1 (0.80-1.20); POTASSIUM 3.9 mmol/L (3.5-5.1); PROTHROMBIN TIME 10.9 SECS (9.5-12.5); SODIUM SERUM 143 mmol/L (136-145); TOTAL BILIRUBIN 1.2 mg/dL (0.0-1.0); TOTAL PROTEIN, SERUM 7.8 g/dL (6.4-8.3); UREA NITROGEN, BLOOD 23 mg/dL (8-21)
[2023-08-22 21:23] LABS: GFR NON AFRICAN-AMERICAN 84 mL/min (>90)
[2023-08-22 21:24] LABS: BILIRUBIN,DIRECT 0.3 mg/dL (0.0-0.3)
[2023-08-22] MEDS: MORPHINE 4 MG INJ. 4 MG/ML VIAL IVP ONE (23:04)
[2023-08-22 23:31] LABS: BILIRUBIN,URINE NEGATIVE (NEGATIVE); BLOOD, URINE NEGATIVE (NEGATIVE); CLARITY/URINE CLEAR (CLEAR); COLOR,URINE YELLOW (YELLOW); GLUCOSE,URINE NEGATIVE (NEGATIVE); KETONES,URINE 1+ (NEGATIVE); LEUKOCYTE ESTERASE ,URINE NEGATIVE (NEGATIVE); NITRITE, URINE NEGATIVE (NEGATIVE); PROTEIN URINE NEGATIVE (NEGATIVE); UROBILINOGEN,URINE 0.2 (0.2-1.0)
[2023-08-23] MEDS ORDERED: CARB1TAB36 PO (01:28)
[2023-08-23] MEDS ORDERED: CARBIDOPA/LEVODOPA 25/250 MG TABLET PO ONE (01:30)
[2023-08-23] MEDS: LORazepam 2 MG/ML VIAL IVP ONE ×2 (01:47→09:08)
[2023-08-23] MEDS ORDERED: CARBIDOPA/LEVODOPA CR 50/200 MG TAB ONE (02:09)
[2023-08-23] MEDS: CARBIDOPA/LEVODOPA CR 50/200 MG TAB PO ONE (02:20)
[2023-08-23] MEDS ORDERED: CARBIDOPA/LEVODOPA 25/100 MG TABLET PO SCH (07:30)
[2023-08-23] MEDS ORDERED: LORA-259 PO (07:44)
[2023-08-23] MEDS ORDERED: CARB1TAB33 PO (07:44)
[2023-08-23] MEDS: CARBIDOPA/LEVODOPA 25/100 MG TABLET PO ONE (08:34)
[2023-08-23] MEDS: HYDROcodone/ACETAMIN 10-325 MG TAB PO ONE (09:09)
[2023-08-23 11:00] VITALS: BP_SYST 121; PULSE 95; RESP 20; TEMP 97.9; O2SAT 97
== END 2023-08-23 11:44 | disposition home or self-care (01) ==
LOC: SED 19:56
DX: M54.2 Cervicalgia (principal); M54.50 Low back pain, unspecified; R51.9 Headache, unspecified; R07.89 Other chest pain; G20.A1 Parkinson's disease without dyskinesia, without mention of fluctuations; I10 Essential (primary) hypertension; G89.29 Other chronic pain; F41.9 Anxiety disorder, unspecified; Z88.6 Allergy status to analgesic agent; Z79.899 Other long term (current) drug therapy; Z79.2 Long term (current) use of antibiotics; W18.39XA Other fall on same level, initial encounter; Y93.89 Activity, other specified; Y92.89 Other specified places as the place of occurrence of the external cause; Y99.8 Other external cause status
CPT/HCPCS: 99285; 70450; 96374; 71045; 80076; 80048; 81001; 83880; 85025; 85610; 85730; 84484; 36415; 93005; 72040; 72100; 72125; 72131; 96375; 96376; J2270; J2060; 81003

== ENCOUNTER 2023-08-23 22:09 | Inpatient (IN) | payer OTHER ==
[~2023-08-23] VITALS: Ht 175.3 cm; Wt 79.5 kg
[~2023-08-23 22:09] MED LIST changes: +CARB1TAB36 PO; +LORA-259 PO
[2023-08-23 22:10] VITALS: BP_SYST 119; PULSE 115; RESP 22; TEMP 98.6; O2SAT 98
[2023-08-23 23:51] LABS: BASOPHILS # (AUTO) 0.1 K/uL (0.0-0.2); BASOPHILS % (AUTO) 0.4 % (0.0-2.0); HEMATOCRIT 45.1 % (36-54); HEMOGLOBIN 15.4 g/dL (14.0-18.0); LYMPHOCYTES # (AUTO) 0.5 K/uL (1.0-5.5); LYMPHOCYTES % (AUTO) 3.4 % (20.5-51.5); MEAN CORPUSCULAR HEMOGLOBIN 32 pg (27-31); MEAN CORPUSCULAR HGB CONC 34 % (32-36); MEAN CORPUSCULAR VOLUME 94 fL (79.0-98.0); MONOCYTES # (AUTO) 0.6 K/uL (0.0-1.0); MONOCYTES % (AUTO) 3.8 % (1.7-9.3); NEUTROPHILS # (AUTO) 15.1 K/uL (1.8-7.7); NEUTROPHILS % (AUTO) 92.4 % (40.0-70.0); PLATELET COUNT (AUTO) 338 K/uL (130-430); RED BLOOD CELL COUNT(AUTO) 4.82 MIL/uL (4.2-6.2); RED CELL DISTRIBUTION WIDTH 14.7 % (9.0-15.0); WHITE BLOOD COUNT (AUTO) 16.3 K/uL (4.8-10.8)
[2023-08-24] VITALS (9 sets, daily range): BP systolic 112–147; PULSE 78–95; RESP 16–20; TEMP 97.9–98.5; O2SAT 95–99
[2023-08-24 00:37] LABS: ANION GAP 9 (5-15); CARBON DIOXIDE 25 mmol/L (23-29); CHLORIDE 107 mmol/L (98-107); CREATININE 1.32 mg/dL (0.55-1.30); GFR AFRICAN AMERICAN 70 mL/min (>90); GLUCOSE 157 mg/dL (74-106); POTASSIUM 4.3 mmol/L (3.5-5.1); SODIUM SERUM 141 mmol/L (136-145); UREA NITROGEN, BLOOD 45 mg/dL (8-21)
[2023-08-24 00:38] LABS: GFR NON AFRICAN-AMERICAN 58 mL/min (>90)
[2023-08-24] MEDS: ACETAMINOPHEN 325 MG TABLET PO ONE (00:55)
[2023-08-24] MEDS: cefTRIAXone 1 GM IVPB PREMIX 50 ML IV ONE (02:14)
[2023-08-24 02:41] LABS: BILIRUBIN,URINE NEGATIVE (NEGATIVE); COLOR,URINE YELLOW (YELLOW); GLUCOSE,URINE NEGATIVE (NEGATIVE); KETONES,URINE 1+ (NEGATIVE); NITRITE, URINE NEGATIVE (NEGATIVE); PROTEIN URINE TRACE (NEGATIVE); UROBILINOGEN,URINE 0.2 (0.2-1.0)
[2023-08-24 03:01] LABS: LEUKOCYTE ESTERASE ,URINE TRACE (NEGATIVE)
[2023-08-24 03:02] LABS: BLOOD, URINE 1+ (NEGATIVE); CLARITY/URINE SLIGHTLY CLOUDY (CLEAR)
[2023-08-24 03:03] LABS: BACTERIA,URINE RARE /HPF (None Seen)
[2023-08-24 03:04] LABS: HYALINE CASTS, URINE 0-10 /LPF (None Seen); MUCUS,URINE 1+ /LPF (None Seen)
[2023-08-24] MEDS: CARBIDOPA/LEVODOPA 25/100 MG TABLET PO SCH (05:20)
[2023-08-24] MEDS: LORazepam 1 MG TABLET PO SCH (05:20)
[2023-08-24] MEDS: traMADol HCL HCL 50 MG TABLET (ULTRAM) PO PRN (05:21)
[2023-08-24] MEDS ORDERED: ACETAMINOPHEN 325 MG TABLET PO PRN (10:15)
[2023-08-24] MEDS ORDERED: ALBUTEROL SULFATE 0.083% 2.5 MG/3 ML VIAL.NEB INH PRN (10:15)
[2023-08-24] MEDS ORDERED: ONDANSETRON HCL 4 MG/2 ML VIAL IVP PRN (10:15)
[2023-08-24] MEDS ORDERED: HYDROcodone/ACETAMIN 5-325 MG TAB (NORCO/ VICODIN) PO PRN (10:15)
[2023-08-24] MEDS ORDERED: NALOXONE HCL 0.4 MG/ML AMP (NARCAN) IVP PRN (10:15)
[2023-08-24] MEDS: NACL 0.9% 1,000 ML IV ONE (11:28)
[2023-08-24] MEDS: LORazepam 1 MG TABLET ONE ×2 (11:42)
[2023-08-24] MEDS: cefTRIAXone 1 GM IVPB PREMIX 50 ML IV SCH (12:00)
[2023-08-24 12:14] LABS: BASOPHILS % (AUTO) 0.4 % (0.0-2.0); EOSINOPHILS # (AUTO) 0.1 K/uL (0.0-0.4); EOSINOPHILS % (AUTO) 0.9 % (0.0-4.0); HEMATOCRIT 43.4 % (36-54); HEMOGLOBIN 14.6 g/dL (14.0-18.0); LYMPHOCYTES # (AUTO) 1.5 K/uL (1.0-5.5); LYMPHOCYTES % (AUTO) 14.3 % (20.5-51.5); MEAN CORPUSCULAR HEMOGLOBIN 32 pg (27-31); MEAN CORPUSCULAR HGB CONC 34 % (32-36); MEAN CORPUSCULAR VOLUME 95 fL (79.0-98.0); MONOCYTES % (AUTO) 9.7 % (1.7-9.3); NEUTROPHILS # (AUTO) 7.9 K/uL (1.8-7.7); NEUTROPHILS % (AUTO) 74.7 % (40.0-70.0); PLATELET COUNT (AUTO) 321 K/uL (130-430); RED BLOOD CELL COUNT(AUTO) 4.57 MIL/uL (4.2-6.2); RED CELL DISTRIBUTION WIDTH 14.4 % (9.0-15.0); WHITE BLOOD COUNT (AUTO) 10.5 K/uL (4.8-10.8)
[2023-08-24 13:36] LABS: ALBUMIN 3.2 g/dL (3.4-4.8); CALCIUM 8.6 mg/dL (8.4-11.0); CREATININE 0.91 mg/dL (0.55-1.30); POTASSIUM 4.1 mmol/L (3.5-5.1); TOTAL BILIRUBIN 0.8 mg/dL (0.0-1.0)
[2023-08-24] MEDS: lisinopriL 20 MG TABLET PO ONE (17:10)
[2023-08-24] MEDS: HYDROcodone/ACETAMIN 10-325 MG TAB PO PRN (17:15)
[2023-08-25] VITALS (7 sets, daily range): BP systolic 110–145; PULSE 66–100; RESP 16–18; TEMP 97.5–99.2; O2SAT 96–99
[2023-08-25 04:35] LABS: BASOPHILS % (AUTO) 0.5 % (0.0-2.0); EOSINOPHILS # (AUTO) 0.2 K/uL (0.0-0.4); EOSINOPHILS % (AUTO) 1.7 % (0.0-4.0); HEMOGLOBIN 13.5 g/dL (14.0-18.0); LYMPHOCYTES # (AUTO) 2.1 K/uL (1.0-5.5); LYMPHOCYTES % (AUTO) 22.7 % (20.5-51.5); MEAN CORPUSCULAR HEMOGLOBIN 32 pg (27-31); MEAN CORPUSCULAR HGB CONC 33 % (32-36); MEAN CORPUSCULAR VOLUME 96 fL (79.0-98.0); MONOCYTES # (AUTO) 0.8 K/uL (0.0-1.0); MONOCYTES % (AUTO) 8.8 % (1.7-9.3); NEUTROPHILS # (AUTO) 6.2 K/uL (1.8-7.7); NEUTROPHILS % (AUTO) 66.3 % (40.0-70.0); PLATELET COUNT (AUTO) 285 K/uL (130-430); RED BLOOD CELL COUNT(AUTO) 4.28 MIL/uL (4.2-6.2); RED CELL DISTRIBUTION WIDTH 14.7 % (9.0-15.0); WHITE BLOOD COUNT (AUTO) 9.4 K/uL (4.8-10.8)
[2023-08-25 04:59] LABS: ALBUMIN 2.9 g/dL (3.4-4.8); CALCIUM 8.5 mg/dL (8.4-11.0); CREATININE 0.91 mg/dL (0.55-1.30); POTASSIUM 4.9 mmol/L (3.5-5.1); TOTAL BILIRUBIN 0.8 mg/dL (0.0-1.0); TOTAL PROTEIN, SERUM 6.3 g/dL (6.4-8.3)
[2023-08-25] MEDS: lisinopriL 20 MG TABLET PO SCH (08:56)
[2023-08-25] MEDS: MORPHINE 2 MG/ML INJ. SYRINGE IVP PRN (15:03)
[2023-08-25] MEDS: CARBIDOPA/LEVODOPA 25/250 MG TABLET PO SCH (23:41)
[2023-08-26] VITALS: BP_SYST 132; PULSE 89; RESP 18; O2SAT 99
[2023-08-26 08:00] VITALS: O2SAT 98
[2023-08-26 08:28] LABS: BASOPHILS # (AUTO) 0.1 K/uL (0.0-0.2); BASOPHILS % (AUTO) 0.6 % (0.0-2.0); EOSINOPHILS # (AUTO) 0.2 K/uL (0.0-0.4); EOSINOPHILS % (AUTO) 2.6 % (0.0-4.0); LYMPHOCYTES # (AUTO) 1.8 K/uL (1.0-5.5); LYMPHOCYTES % (AUTO) 20.5 % (20.5-51.5); MEAN CORPUSCULAR HEMOGLOBIN 32 pg (27-31); MEAN CORPUSCULAR HGB CONC 33 % (32-36); MEAN CORPUSCULAR VOLUME 95 fL (79.0-98.0); MONOCYTES # (AUTO) 0.7 K/uL (0.0-1.0); NEUTROPHILS # (AUTO) 6.1 K/uL (1.8-7.7); NEUTROPHILS % (AUTO) 68.3 % (40.0-70.0); PLATELET COUNT (AUTO) 311 K/uL (130-430); RED BLOOD CELL COUNT(AUTO) 4.74 MIL/uL (4.2-6.2); RED CELL DISTRIBUTION WIDTH 14.1 % (9.0-15.0); WHITE BLOOD COUNT (AUTO) 8.9 K/uL (4.8-10.8)
[2023-08-26 09:14] LABS: ALBUMIN 3.2 g/dL (3.4-4.8); CALCIUM 8.9 mg/dL (8.4-11.0); CREATININE 0.74 mg/dL (0.55-1.30); POTASSIUM 4.2 mmol/L (3.5-5.1); TOTAL PROTEIN, SERUM 7.1 g/dL (6.4-8.3)
[2023-08-26 12:49] VITALS: BP_SYST 102; PULSE 64; RESP 17; TEMP 98.3; O2SAT 97
[2023-08-26 16:35] VITALS: BP_SYST 94; PULSE 78; RESP 19; TEMP 97.6; O2SAT 98
[2023-08-26 17:09] VITALS: BP_SYST 124; PULSE 86; RESP 16; TEMP 97.5; O2SAT 97
[2023-08-26] MEDS ORDERED: HYDROCORTISONE 1%, 28.35 GM TOPICAL CREAM TP SCH (21:00)
== END 2023-08-26 18:27 | DRG 463 ==
LOC: SED 22:09 → SMU 08-24 01:51
PROVIDERS: ADMIT Specialist; ATTEND Specialist
DX: N30.00 Acute cystitis without hematuria (principal); N17.9 Acute kidney failure, unspecified; F02.80 Dementia in other diseases classified elsewhere, unspecified severity, without behavioral disturbance, psychotic disturbance, mood disturbance, and anxiety; G20.A1 Parkinson's disease without dyskinesia, without mention of fluctuations; D72.829 Elevated white blood cell count, unspecified; I10 Essential (primary) hypertension; Z20.822 Contact with and (suspected) exposure to COVID-19; G89.29 Other chronic pain; L21.9 Seborrheic dermatitis, unspecified; Z88.8 Allergy status to other drugs, medicaments and biological substances; Z79.899 Other long term (current) drug therapy; I25.2 Old myocardial infarction; Z86.73 Personal history of transient ischemic attack (TIA), and cerebral infarction without residual deficits
CPT/HCPCS: 36415; 70450-TC; 71045; 72125-TC; 73090; 80048; 80053; 81000; 81001; 81015; 83037; 83880; 84484; 85025; 87040; 87086; 93005; 97110-GP; 97530-GP; 99285; J0696; J2270